=== PATIENT | female | born 1995 | race Caucasian/White ===

== ENCOUNTER 2016-09-28 20:00 | Emergency (ER) | payer BC ==
--- NOTE | 2016-09-28 21:01 | ED CLINICAL REPORT ---
Clinical Report - Physicians/Mid Levels [facility] [address] [place] [address] 09/28/2016 20:01 Patient: ADAM GODOY Time Seen: 20:20. Arrived- By private vehicle. Historian- patient. HISTORY OF PRESENT ILLNESS Chief Complaint: LESION. This started several days ago and is still present and worsening. It was gradual in onset and has been constant. It is described as painful. It has been located on the left forearm. A cause has been identified (The patient was discharged from the [facility] 3 days ago after delivering a baby. She says that she had an IV in her left forearm. After her discharge she has noticed increased redness warmth and swelling over the site where the IV placed.). Similar symptoms previously: None. REVIEW OF SYSTEMS No chills, fever, sweats, calf pain or chest pain. No cough, difficulty breathing, pedal edema, palpitations or abdominal pain. No constipation, diarrhea, nausea, vomiting or urinary problems. She is breast-feeding. All systems otherwise negative, except as recorded above. PAST HISTORY Problems: Anemia. Contusion. Crush Injury, Upper Extremity. Additional Surgeries: no known surgeries. Medications: Vitamin D Oral. Iron Oral. Colace Oral. Allergies: No Known Drug Allergy. SOCIAL HISTORY Never smoker. No alcohol use or drug use. FAMILY HISTORY No significant family medical history. ADDITIONAL NOTES The nursing notes have been reviewed. PHYSICAL EXAM Vital Signs: 09/28/2016 20:14 BP: 118/70. HR: 93. RR: 15. O2 saturation: 100%. Temp: 98.8 F. Pain level now: 6/10. Have been reviewed. Appearance: Alert. Eyes: Pupils equal, round and reactive to light. ENT: Pharynx normal. Neck: Neck supple. CVS: Normal heart rate and rhythm. Heart sounds normal. Respiratory: No respiratory distress. Breath sounds normal. Abdomen: Nontender. (firm uterus below umbilicus). Skin: Medium area of cellulitis with tenderness, erythema and warmth to left forearm. Extremities: No calf tenderness. Neuro: No motor deficit. No sensory deficit. PROGRESS AND PROCEDURES Course of Care: Patient is stable. Patient/family counseled. Old medical records reviewed. Disposition: Discharged. Condition: stable. CLINICAL IMPRESSION Cellulitis of the left forearm. INSTRUCTIONS Warnings: Further evaluation is necessary. GENERAL WARNINGS: Return or contact your physician immediately if your condition worsens or changes unexpectedly, if not improving as expected, or if other problems arise. Prescription Medications: Keflex 500 mg: take 1 capsule orally every 6 hours for 10 days. No refill. Substitution is permissible. Follow-up: Follow up with your doctor REYNALDO BIGGS tomorrow. Call for an appointment. Understanding of the discharge instructions verbalized by patient and family. (Electronically signed by Raj Tavares MD 09/30/2016 3:59)
--- NOTE | 2016-09-28 21:01 | ED NURSING NOTES ---
Clinical Report - Nurses [facility] [address] [place] [address] 09/28/2016 20:01 Patient: ADAM GODOY TRIAGE Triage time 2014 PM. Acuity: LEVEL 4. Chief Complaint: LEFT UPPER EXTREMITY PAIN and SWELLING. Alert. No acute distress. KERMIT COMA SCORE: Kermit Coma Scale: 15- eyes open spontaneously (4); best verbal response- oriented x 4 (5); best motor response- obeys commands (6). --20:24 Nichole Chamberlain R.N. 20:14 09/28/16. BP: 118/70 (regular adult cuff) taken on the left arm, via an automated monitor, while lying. HR: 93. RR: 15. O2 saturation: 100% on room air. Temp: 98.8 F (oral). Pain level now: 10/31. --20:24 Nichole Chamberlain R.N. Weight: 70.3 kg stated. Height/Length: 62 inches Per Patient. BMI: 28.4. --20:15 Nichole Chamberlain R.N. Medications Colace Oral. --20:16 Nichole Chamberlain R.N. Iron Oral. --20:16 Nichole Chamberlain R.N. Vitamin D Oral. --20:17 Nichole Chamberlain R.N. Allergies No Known Drug Allergy. --21:17 Nichole Chamberlain R.N. Medication/allergy information source: the patient. --20:24 Nichole Chamberlain R.N. History Arrived by private vehicle. Historian: patient. Accompanied by family. Primary physician (Dr. Rust). ( Pt just gave and got discharged from on Wednesday, IV site on left FA is swollen and red and as per pt IV got d/c'd on wednesday due to "it hurting" Noticed that site got swollen on Wednesday evening, warm and tender to the touch. Denies fevers, chills or drainage. Pt has placed warm compresses and ibuprofen with very little relief, here for further evaluation). No injury occurred. This occurred (Wednesday-Wednesday). She has had swelling and redness. No fever, neck pain, skin rash, itching or numbness. No weakness. 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 (at 12pm). PAST MEDICAL HX: Tetanus status: up-to-date. Immunizations: up-to-date. The patient is lactating. 2. Para 2. Sexual history - sexually active. SOCIAL HX: Never smoker. No alcohol use or drug use. No infectious disease exposure. ABUSE ASSESSMENT: No report of abuse. SELF HARM ASSESSMENT: A self harm assessment was performed. The patient answered "no" to the question "Do you have thoughts of harming or killing yourself?" and "Have you recently had thoughts about harming or killing others?". FALL RISK ASSESSMENT: Fall risk assessment completed. No fall risk identified. NUTRITIONAL RISK ASSESSMENT: The nutritional risk assessment revealed no deficiencies. FUNCTIONAL ASSESSMENT: Functional assessment: no impairments noted. LEARNING NEEDS ASSESSMENT: The learning needs assessment revealed no barriers. SKIN INTEGRITY ASSESSMENT: Skin integrity risk assessment completed. No skin integrity risk identified. --20:24 Nichole Chamberlain R.N. PROBLEMS: Anemia. Contusion. Crush Injury, Upper Extremity. --20:17 Nichole Chamberlain R.N. ADDITIONAL SURGERIES: no known surgeries. Interventions ID band on patient. --20:24 Nichole Chamberlain R.N. PHYSICAL ASSESSMENT Ambulatory to room. GENERAL / NEURO / PSYCH: Oriented X 4. Appears in no acute distress. No weakness. No numbness. EXTREMITIES: Erythema on the extremities. Neuro-vascular status intact to the extremity. No extremity drainage. Left forearm: tenderness, swelling, erythema and single puncture wound of the distal forearm. No laceration, abrasion, foreign body or deformity. SKIN: No extremity wound. Skin is warm and dry. Skin not intact. No skin breakdown noted. --20:25 Nichole Chamberlain R.N. NURSING PROGRESS NOTES The initial plan of care for this patient has been created This plan of care was discussed with the patient and family. Neuro-vascular extremity check. Reassurance given. Warming measures not performed. Wound cleansed. Two patient identifiers checked. Call light placed in reach. Side rails up x 1. Bed placed in lowest position. Brakes of bed on. --20:26 Nichole Chamberlain R.N. Patient ready for evaluation- ED physician notified. --20:26 Nichole Chamberlain R.N. DISPOSITION / DISCHARGE Departure time: 2210 PM. Condition at departure: unchanged and stable. The goals identified in the patient's plan of care were met. No learning barriers present. Discharge instructions provided and reviewed with the patient and spouse. Reviewed medication(s) side effects, precautions, dosing and course information. Prescription(s) given to the patient. Patient and spouse verbalized understanding. Written instructions provided in Moroccan. The patient was discharged by the physician. She was discharged home and accompanied by spouse. She left the Emergency Department ambulatory and via private vehicle. Spouse driving. FALL RISK ASSESSMENT: Fall risk assessment completed. No fall risk identified. --21:16 Nichole Chamberlain R.N. 21:00 09/28/16. BP: 115/87. HR: 84. RR: 14. O2 saturation: 100%. Temp: 98.3 F (oral). Pain level now: 10/31. --21:16 Nichole Chamberlain R.N. Locked/Released at 09/28/2016 21:17 by Nichole Chamberlain R.N.
--- NOTE | 2016-09-28 21:01 | ED CLINICAL REPORT ---
Clinical Report - Physicians/Mid Levels [facility] [address] [place] [address] 09/28/2016 20:01 Patient: ADAM GODOY Time Seen: 20:20. Arrived- By private vehicle. Historian- patient. HISTORY OF PRESENT ILLNESS Chief Complaint: LESION. This started several days ago and is still present and worsening. It was gradual in onset and has been constant. It is described as painful. It has been located on the left forearm. A cause has been identified (The patient was discharged from the [facility] 3 days ago after delivering a baby. She says that she had an IV in her left forearm. After her discharge she has noticed increased redness warmth and swelling over the site where the IV placed.). Similar symptoms previously: None. REVIEW OF SYSTEMS No chills, fever, sweats, calf pain or chest pain. No cough, difficulty breathing, pedal edema, palpitations or abdominal pain. No constipation, diarrhea, nausea, vomiting or urinary problems. She is breast-feeding. All systems otherwise negative, except as recorded above. PAST HISTORY Problems: Anemia. Contusion. Crush Injury, Upper Extremity. Additional Surgeries: no known surgeries. Medications: Vitamin D Oral. Iron Oral. Colace Oral. Allergies: No Known Drug Allergy. SOCIAL HISTORY Never smoker. No alcohol use or drug use. FAMILY HISTORY No significant family medical history. ADDITIONAL NOTES The nursing notes have been reviewed. PHYSICAL EXAM Vital Signs: 09/28/2016 20:14 BP: 118/70. HR: 93. RR: 15. O2 saturation: 100%. Temp: 98.8 F. Pain level now: 6/10. Have been reviewed. Appearance: Alert. Eyes: Pupils equal, round and reactive to light. ENT: Pharynx normal. Neck: Neck supple. CVS: Normal heart rate and rhythm. Heart sounds normal. Respiratory: No respiratory distress. Breath sounds normal. Abdomen: Nontender. (firm uterus below umbilicus). Skin: Medium area of cellulitis with tenderness, erythema and warmth to left forearm. Extremities: No calf tenderness. Neuro: No motor deficit. No sensory deficit. PROGRESS AND PROCEDURES Course of Care: Patient is stable. Patient/family counseled. Old medical records reviewed. Disposition: Discharged. Condition: stable. CLINICAL IMPRESSION Cellulitis of the left forearm. INSTRUCTIONS Warnings: Further evaluation is necessary. GENERAL WARNINGS: Return or contact your physician immediately if your condition worsens or changes unexpectedly, if not improving as expected, or if other problems arise. Prescription Medications: Keflex 500 mg: take 1 capsule orally every 6 hours for 10 days. No refill. Substitution is permissible. Follow-up: Follow up with your doctor REYNALDO BIGGS tomorrow. Call for an appointment. Understanding of the discharge instructions verbalized by patient and family. (Electronically signed by Raj Tavares MD 09/30/2016 3:59)
--- NOTE | 2016-09-30 04:00 | ED MAR SUMMARY ---
..... Medication Administration Record [facility] [address] [place] [id number] Patient: ADAM GODOY Visit ID: [id number] 21y, F Weight: 70.3 kg Height/Length: 62 in BMI: 28.4 ALLERGIES: No Known Drug Allergy
--- NOTE | 2016-09-30 04:00 | ED MED RECONCILIATION SUMMARY ---
Patient: ADAM GODOY Medication Reconciliation Report [facility] VisitID: [id number] [address] [place] [address] 21y, F Registration Date/Time: 09/28/2016 Weight: 70.3 kg Height/Length: 62 in. BMI: 28.4 ALLERGIES: No Known Drug Allergy The patient's Home Medications are listed below: THE FOLLOWING MEDICATIONS NEED TO BE RECONCILED: Colace Oral Iron Oral Vitamin D Oral The source(s) of the original Home Medication information: patient The following Medications were given to the patient in the Emergency Department: None. The following Medications were prescribed to the patient: Keflex 500 mg: take 1 capsule orally every 6 hours for 10 days. No refill. Substitution is permissible. -- Raj Tavares MD
--- NOTE | 2016-09-30 04:00 | ED DISCHARGE INSTRUCTIONS ---
Patient: ADAM GODOY General Instructions [facility] VisitID: [id number] [place] [address] 21y, F Registration Date/Time: 09/28/2016 Cellulitis of the left forearm. INSTRUCTIONS Warnings: Further evaluation is necessary. GENERAL WARNINGS: Return or contact your physician immediately if your condition worsens or changes unexpectedly, if not improving as expected, or if other problems arise. Prescription Medications: Keflex 500 mg: take 1 capsule orally every 6 hours for 10 days. No refill. Substitution is permissible. Follow-up: Follow up with your doctor REYNALDO BIGGS tomorrow. Call for an appointment. Understanding of the discharge instructions verbalized by patient and family. ADDITIONAL INFORMATION Cellulitis You have an infection of the skin known as cellulitis. This usually starts with a scrape, cut, insect bite, blister or other opening in the skin which becomes infected. This is a serious condition. It must be watched closely to be sure the infection is not spreading. With antibiotic treatment, the size of the red area will gradually shrink in size until the skin returns to normal. This will take 7-10 days. The red area should never increase in size once the antibiotic medicine has been started. Occasionally, an infection will be resistant to one antibiotic and another one will have to be used. Home Care: 1) Limit the use of the affected part, since excess movement can cause the infection to spread. 2) If the infection is on your leg, walk as little as possible during the first few days of the treatment. Keep your leg elevated while sitting. This will reduce swelling. 3) Take all of the antibiotic medicine exactly as directed until it is gone. Be careful not to miss any doses, especially during the first seven days. Follow Up with your doctor or this facility as directed. Check the infected area daily for the warning signs listed below. Get Prompt Medical Attention if any of the following occur: -- Spreading area of redness -- Increasing swelling or pain -- Appearance of pus or drainage -- Fever over 100.4 F (38.0 C) oral, or over 101.4 F (38.6 C) rectal, after two days on antibiotics Cephalexin Monohydrate Oral tablet What is this medicine? CEPHALEXIN (sef a DAVID in) is a cephalosporin antibiotic. It is used to treat certain kinds of bacterial infections It will not work for colds, flu, or other viral infections. How should I use this medicine? Take this medicine by mouth with a full glass of water. Follow the directions on the prescription label. This medicine can be taken with or without food. Take your medicine at regular intervals. Do not take your medicine more often than directed. Take all of your medicine as directed even if you think you are better. Do not skip doses or stop your medicine early. Talk to your brass burnisher regarding the use of this medicine in children. While this drug may be prescribed for selected conditions, precautions do apply. What side effects may I notice from receiving this medicine? Side effects that you should report to your doctor or health veterinarian laboratory animal care as soon as possible: allergic reactions like skin rash, itching or hives, swelling of the face, lips, or tongue breathing problems pain or trouble passing urine redness, blistering, peeling or loosening of the skin, including inside the mouth severe or watery diarrhea unusually weak or tired yellowing of the eyes, skin Side effects that usually do not require medical attention (report to your doctor or health veterinarian laboratory animal care if they continue or are bothersome): gas or heartburn genital or anal irritation headache joint or muscle pain nausea, vomiting What may interact with this medicine? probenecid some other antibiotics What if I miss a dose? If you miss a dose, take it as soon as you can. If it is almost time for your next dose, take only that dose. Do not take double or extra doses. There should be at least 4 to 6 hours between doses. Where should I keep my medicine? Keep out of the reach of children. Store at room temperature between 59 and 86 degrees F (15 and 30 degrees C). Throw away any unused medicine after the expiration date. What should I tell my health care provider before I take this medicine? They need to know if you have any of these conditions: kidney disease stomach or intestine problems, especially colitis an unusual or allergic reaction to cephalexin, other cephalosporins, penicillins, other antibiotics, medicines, foods, dyes or preservatives or trying to get breast-feeding What should I watch for while using this medicine? Tell your doctor or health veterinarian laboratory animal care if your symptoms do not begin to improve in a few days. Do not treat diarrhea with over the counter products. Contact your doctor if you have diarrhea that lasts more than 2 days or if it is severe and watery. If you have diabetes, you may get a false-positive result for sugar in your urine. Check with your doctor or health veterinarian laboratory animal care. You have been given the following additional information: Cellulitis Cephalexin Monohydrate Oral tablet (Electronically signed by Raj Tavares MD 09/30/2016 3:59)
--- NOTE | 2016-09-30 04:00 | ED MAR SUMMARY ---
..... Medication Administration Record [facility] [address] [place], [place] [id number] Patient: ADAM GODOY Visit ID: [id number] 21y, F Weight: 70.3 kg Height/Length: 62 in BMI: 28.4 ALLERGIES: No Known Drug Allergy
--- NOTE | 2016-09-30 04:00 | ED DISCHARGE INSTRUCTIONS ---
Patient: ADAM GODOY General Instructions [facility] VisitID: [id number] [place] [address] 21y, F Registration Date/Time: 09/28/2016 Cellulitis of the left forearm. INSTRUCTIONS Warnings: Further evaluation is necessary. GENERAL WARNINGS: Return or contact your physician immediately if your condition worsens or changes unexpectedly, if not improving as expected, or if other problems arise. Prescription Medications: Keflex 500 mg: take 1 capsule orally every 6 hours for 10 days. No refill. Substitution is permissible. Follow-up: Follow up with your doctor REYNALDO BIGGS tomorrow. Call for an appointment. Understanding of the discharge instructions verbalized by patient and family. ADDITIONAL INFORMATION Cellulitis You have an infection of the skin known as cellulitis. This usually starts with a scrape, cut, insect bite, blister or other opening in the skin which becomes infected. This is a serious condition. It must be watched closely to be sure the infection is not spreading. With antibiotic treatment, the size of the red area will gradually shrink in size until the skin returns to normal. This will take 7-10 days. The red area should never increase in size once the antibiotic medicine has been started. Occasionally, an infection will be resistant to one antibiotic and another one will have to be used. Home Care: 1) Limit the use of the affected part, since excess movement can cause the infection to spread. 2) If the infection is on your leg, walk as little as possible during the first few days of the treatment. Keep your leg elevated while sitting. This will reduce swelling. 3) Take all of the antibiotic medicine exactly as directed until it is gone. Be careful not to miss any doses, especially during the first seven days. Follow Up with your doctor or this facility as directed. Check the infected area daily for the warning signs listed below. Get Prompt Medical Attention if any of the following occur: -- Spreading area of redness -- Increasing swelling or pain -- Appearance of pus or drainage -- Fever over 100.4 F (38.0 C) oral, or over 101.4 F (38.6 C) rectal, after two days on antibiotics Cephalexin Monohydrate Oral tablet What is this medicine? CEPHALEXIN (sef a DAVID in) is a cephalosporin antibiotic. It is used to treat certain kinds of bacterial infections It will not work for colds, flu, or other viral infections. How should I use this medicine? Take this medicine by mouth with a full glass of water. Follow the directions on the prescription label. This medicine can be taken with or without food. Take your medicine at regular intervals. Do not take your medicine more often than directed. Take all of your medicine as directed even if you think you are better. Do not skip doses or stop your medicine early. Talk to your staining machine operator regarding the use of this medicine in children. While this drug may be prescribed for selected conditions, precautions do apply. What side effects may I notice from receiving this medicine? Side effects that you should report to your doctor or health vocational childcare teacher as soon as possible: allergic reactions like skin rash, itching or hives, swelling of the face, lips, or tongue breathing problems pain or trouble passing urine redness, blistering, peeling or loosening of the skin, including inside the mouth severe or watery diarrhea unusually weak or tired yellowing of the eyes, skin Side effects that usually do not require medical attention (report to your doctor or health vocational childcare teacher if they continue or are bothersome): gas or heartburn genital or anal irritation headache joint or muscle pain nausea, vomiting What may interact with this medicine? probenecid some other antibiotics What if I miss a dose? If you miss a dose, take it as soon as you can. If it is almost time for your next dose, take only that dose. Do not take double or extra doses. There should be at least 4 to 6 hours between doses. Where should I keep my medicine? Keep out of the reach of children. Store at room temperature between 59 and 86 degrees F (15 and 30 degrees C). Throw away any unused medicine after the expiration date. What should I tell my health care provider before I take this medicine? They need to know if you have any of these conditions: kidney disease stomach or intestine problems, especially colitis an unusual or allergic reaction to cephalexin, other cephalosporins, penicillins, other antibiotics, medicines, foods, dyes or preservatives or trying to get breast-feeding What should I watch for while using this medicine? Tell your doctor or health vocational childcare teacher if your symptoms do not begin to improve in a few days. Do not treat diarrhea with over the counter products. Contact your doctor if you have diarrhea that lasts more than 2 days or if it is severe and watery. If you have diabetes, you may get a false-positive result for sugar in your urine. Check with your doctor or health vocational childcare teacher. You have been given the following additional information: Cellulitis Cephalexin Monohydrate Oral tablet (Electronically signed by Raj Tavares MD 09/30/2016 3:59)
--- NOTE | 2016-09-30 04:00 | ED MED RECONCILIATION SUMMARY ---
Patient: ADAM GODOY Medication Reconciliation Report [facility] VisitID: [id number] [address] [place] [address] 21y, F Registration Date/Time: 09/28/2016 Weight: 70.3 kg Height/Length: 62 in. BMI: 28.4 ALLERGIES: No Known Drug Allergy The patient's Home Medications are listed below: THE FOLLOWING MEDICATIONS NEED TO BE RECONCILED: Colace Oral Iron Oral Vitamin D Oral The source(s) of the original Home Medication information: patient The following Medications were given to the patient in the Emergency Department: None. The following Medications were prescribed to the patient: Keflex 500 mg: take 1 capsule orally every 6 hours for 10 days. No refill. Substitution is permissible. -- Raj Tavares MD
== END 2016-09-28 21:10 | disposition home or self-care (01) ==
LOC: ED SRH 20:00
DX: O99.73 Diseases of the skin and subcutaneous tissue complicating the puerperium (principal); L03.114 Cellulitis of left upper limb